=== PATIENT | female | born 2000 | race African-American/Black ===

== ENCOUNTER 2019-12-16 16:26 | Emergency (ER) | payer MEDICAID ==
[~2019-12-16] VITALS: Ht 160 cm; Wt 55.6 kg
--- NOTE | 2019-12-16 16:45 | NUR ---
TAPPER SHANK: PT TO ROOM FROM [facility]
[2019-12-16 17:11] LABS: BASOPHILS % (AUTO) 0 % (0-1); EOSINOPHILS % (AUTO) 1 % (1-7); LYMPHOCYTES % (AUTO) 17 % (22-44); MEAN CORPUSCULAR HEMOGLOBIN 27.8 pg (27.0-34.8); MEAN CORPUSCULAR HGB CONC 33.1 g/dL (32.4-35.8); MEAN PLATELET VOLUME 8.3 fL (7.4-10.4); MONOCYTES % (AUTO) 8 % (2-9); NEUTROPHILS % (AUTO) 73 % (42-75); PLATELET COUNT 309 x10^3/uL (130-400); RED BLOOD COUNT 4.12 x10^6/uL (3.82-5.3); RED CELL DISTRIBUTION WIDTH 13.7 % (9.6-15.2)
[2019-12-16 17:13] LABS: MD NO
[2019-12-16 17:19] LABS: ALBUMIN 3.1 g/dL (3.4-5.0); ANION GAP 6 mmol/L (5-15); CALCIUM 9.7 mg/dL (8.5-10.1); CHLORIDE 104 mmol/L (98-107); CREATININE 0.67 mg/dL (0.55-1.02)
[2019-12-16] MEDS ORDERED: PRENATAL VITAMIN (17:23)
[2019-12-16 17:28] VITALS: BP 120/84
[2019-12-16 17:37] LABS: MICROSCOPIC NOT IND
--- NOTE | 2019-12-16 17:48 | NUR ---
PELVIC CART TO ROOM
--- NOTE | 2019-12-16 18:30 | NUR ---
CALL FROM LAB: [facility] IS POSITIVE. LAB UNABLE TO RUN FERNING TEST & WILL BE CANCELED. WILL UPDATE ERP
[2019-12-16 18:50] LABS: CLUE CELLS NONE SEEN (NONE SEEN); WET PREP WBCS MODERATE (FEW)
[2019-12-17] MEDS ORDERED: PREN1TAB62 PO (20:57)
== END 2019-12-16 20:15 | disposition home or self-care (01) ==
LOC: ED 20:10
DX: O42.90 Premature rupture of membranes, unspecified as to length of time between rupture and onset of labor, unspecified weeks of gestation (principal); O26.892 Other specified pregnancy related conditions, second trimester; Z3A.16 16 weeks gestation of pregnancy
CPT/HCPCS: 36415; 76815; 80048; 81003; 82040; 84112; 85025; 87210; 87808; 99284

== ENCOUNTER 2019-12-17 20:36 | Inpatient (IN) | payer MEDICAID ==
[~2019-12-17] VITALS: Ht 160 cm; Wt 58.3 kg
[~2019-12-17 20:36] MED LIST: PRENATAL VITAMIN
--- NOTE | 2019-12-17 20:45 | NUR ---
pt BIB [facility] from home afer pt found her umbilical cord polapsed afte getting ou of the shower tonight pt was seen here last nocs for leaking of umbilical fluid and aft US had an incidntal finding of twins. pt is pt has not yet had any care but states that she has been taking PNV pt has no vaginal bleeding. denies cramping. pt has no urinary c/o. pt reports that she is feeling movement
--- NOTE | 2019-12-17 20:55 | NUR ---
Dr. Perez at bedside for vaginal exam, witnessed by Sobia CORTEZ and this RN sterile wet gauze was placed to vagina [employer]IST[employer] PROF[employer]OR [employer], has been removed and umbilical cord is visualized sterile wet gauze replaced post exam no vaginal bleeding noted
[2019-12-17] MEDS ORDERED: PREN1TAB62 PO (20:57)
--- NOTE | 2019-12-17 21:10 | NUR ---
Sobia CORTEZ at bedside for recheck. pt to be transfered to L&D
--- NOTE | 2019-12-17 21:14 | NUR ---
pt to have rapid COVID screen prior to transfer to L&D
--- NOTE | 2019-12-17 21:25 | NUR ---
pt has had rapid COVID swab. pt and SO at bedside updated on POC pt tearful. privacy provided
[2019-12-17] MEDS ORDERED: SODIUM CHLORIDE FLUSH 10ML SYR IVF ONE (21:30)
--- NOTE | 2019-12-17 21:35 | NUR ---
pt reports that she has some discomfort in her thighs upon exam, pt has more cord protruding. no bleeding noted. no evidence of tearing
--- NOTE | 2019-12-17 21:54 | NUR ---
CHRISTYN has been to bedside fo evaluation US currently at bedside
[2019-12-17] MEDS ORDERED: CALCIUM CARBONATE 500 MG TAB.CHEW PO PRN (22:30)
[2019-12-17] MEDS ORDERED: MISOPROSTOL 200 MCG TABLET SL SCH (22:30)
[2019-12-17] MEDS ORDERED: OXYTOCIN 30U/ 0.9% NaCL 500ML 500 ML IV ONE (22:30)
[2019-12-17] MEDS ORDERED: SODIUM CITRATE/CITRIC ACID 30 ML UDC PO PRN (22:30)
[2019-12-17] MEDS ORDERED: LACTATED RINGERS 1,000 ML IV SCH (22:30)
[2019-12-17] MEDS ORDERED: FENTANYL PF 100 MCG/2ML IVPush PRN (22:30)
[2019-12-17] MEDS ORDERED: OXYTOCIN 30U/ 0.9% NaCL 500ML 500 ML IV PRN (22:30)
[2019-12-17] MEDS ORDERED: DIPHENHYDRAMINE 50 MG CAPSULE PO PRN (22:30)
[2019-12-17] MEDS ORDERED: METOCLOPRAMIDE 5 MG/ML, 2ML IVPush PRN (22:30)
[2019-12-17] MEDS ORDERED: ACETAMINOPHEN 325 MG TABLET PO PRN ×2 (22:30)
[2019-12-17] MEDS ORDERED: ALUMINUM/MAG/SIMETHICONE 30 ML UDC PO PRN (22:30)
[2019-12-17] MEDS ORDERED: RHOGAM FROM BLOOD BANK 1 NOTE EA IM/IV PRN (22:30)
[2019-12-17 22:56] VITALS: BP 128/78
[2019-12-17 23:10] LABS: BASOPHILS % (AUTO) 0 % (0-1); EOSINOPHILS % (AUTO) 0 % (1-7); LYMPHOCYTES % (AUTO) 6 % (22-44); MEAN CORPUSCULAR HEMOGLOBIN 27.3 pg (27.0-34.8); MEAN CORPUSCULAR HGB CONC 32.8 g/dL (32.4-35.8); MEAN PLATELET VOLUME 8.3 fL (7.4-10.4); MONOCYTES % (AUTO) 1 % (2-9); NEUTROPHILS % (AUTO) 93 % (42-75); PLATELET COUNT 272 x10^3/uL (130-400); RED BLOOD COUNT 4.13 x10^6/uL (3.82-5.3); RED CELL DISTRIBUTION WIDTH 13.8 % (9.6-15.2)
[2019-12-17] MEDS ORDERED: ACETAMINOPHEN 500 MG TABLET ONE (23:24)
[2019-12-17 23:25] LABS: AMPHETAMINE SCREEN, URINE Negative (Negative); BARBITURATE SCREEN, URINE Negative (Negative); BENZODIAZEPINE SCREEN, URINE Negative (Negative); CANNABINOID SCREEN, URINE Positive (Negative); COCAINE SCREEN, URINE Negative (Negative); METHADONE SCREEN, URINE Negative (Negative); OPIATE SCREEN, URINE Negative (Negative)
[2019-12-17] MEDS: ACETAMINOPHEN 500 MG TABLET PO ONE (23:28)
[2019-12-17] MEDS: CEFOXITIN 2 GM in DEXTROSE 5% 100 ML IV SCH (23:29)
[2019-12-17 23:30] LABS: MD NO
[2019-12-17] MEDS ORDERED: ONDANSETRON 2MG/ML, 2ML ONE (23:35)
[2019-12-17] MEDS ORDERED: ACETAMINOPHEN 650 MG SUPP ONE (23:44)
[2019-12-17 23:48] LABS: MICROSCOPIC INDICATED
[2019-12-18] MEDS ORDERED: ONDANSETRON 2MG/ML, 2ML IVPush PRN
[2019-12-18] MEDS ORDERED: ACETAMINOPHEN 100 ML IVPB ONE
[2019-12-18] MEDS ORDERED: ACETAMINOPHEN 650 MG SUPP PR PRN
[2019-12-18] MEDS: DOXYCYCLINE 100 MG in DEXTROSE 5% 250 ML IV SCH ×2 (00:20→12:33)
[2019-12-18 00:21] VITALS: BP 90/42
[2019-12-18] MEDS ORDERED: FENTANYL PF 100 MCG/2ML ONE ×2 (01:31→02:56)
[2019-12-18] MEDS: FENTANYL PF 100 MCG/2ML IVPush PRN ×2 (01:40→04:07)
[2019-12-18] MEDS ORDERED: ACETAMINOPHEN 325 MG TABLET PO PRN ×2 (04:00)
[2019-12-18] MEDS ORDERED: CALCIUM CARBONATE 500 MG TAB.CHEW PO PRN (04:00)
[2019-12-18] MEDS ORDERED: ONDANSETRON 2MG/ML, 2ML IV PRN (04:00)
[2019-12-18] MEDS ORDERED: SIMETHICONE 80 MG CHEW TAB PO PRN (04:00)
[2019-12-18] MEDS ORDERED: MISOPROSTOL 200 MCG TABLET PO PRN (04:00)
[2019-12-18] MEDS ORDERED: ACETAMINOPHEN 500 MG TABLET ONE (04:06)
[2019-12-18] MEDS: ACETAMINOPHEN 500 MG TABLET PO ONE (04:07)
[2019-12-18] MEDS: CEFOXITIN 2 GM in DEXTROSE 5% 100 ML IV SCH ×3 (07:30→23:50)
[2019-12-18] MEDS ORDERED: IBUPROFEN 600 MG TABLET ONE ×2 (10:11→17:04)
[2019-12-18] MEDS: IBUPROFEN 600 MG TABLET PO PRN ×2 (10:13→17:09)
[2019-12-18] MEDS: PIPERACILLIN/TAZO/PMX 3.375GM 50 ML IV SCH ×2 (10:50→22:41)
[2019-12-18] MEDS: LACTATED RINGERS 1,000 ML IV SCH (14:00)
[2019-12-18] MEDS ORDERED: LACTATED RINGERS 1,000 ML IV SCH (14:30)
[2019-12-18] MEDS ORDERED: HYDROcodone/APAP 5/325 TABLET ONE (17:04)
[2019-12-18] MEDS: HYDROcodone/APAP 5/325 TABLET PO PRN (17:09)
[2019-12-18 19:41] VITALS: BP 91/53
[2019-12-19] MEDS: DOXYCYCLINE 100 MG in DEXTROSE 5% 250 ML IV SCH ×3 (00:45→23:56)
[2019-12-19] MEDS: PIPERACILLIN/TAZO/PMX 3.375GM 50 ML IV SCH ×5 (04:48→22:25)
[2019-12-19] MEDS ORDERED: ACETAMINOPHEN 325 MG TABLET ONE ×3 (06:18→17:24)
[2019-12-19 06:37] LABS: MEAN CORPUSCULAR HEMOGLOBIN 27.5 pg (27.0-34.8); MEAN CORPUSCULAR HGB CONC 32.7 g/dL (32.4-35.8); MEAN PLATELET VOLUME 8.4 fL (7.4-10.4); PLATELET COUNT 117 x10^3/uL (130-400); RED BLOOD COUNT 3.26 x10^6/uL (3.82-5.3); RED CELL DISTRIBUTION WIDTH 14.2 % (9.6-15.2)
[2019-12-19] MEDS: LACTATED RINGERS 1,000 ML IV SCH ×4 (07:00→23:05)
[2019-12-19 07:35] LABS: MD YES
[2019-12-19 07:36] LABS: BANDS%(MANUAL) 19 % (0-7); LYMPH#(MANUAL) 0.96 x10^3/uL (1-6.1); LYMPHS% (MANUAL) 3 % (22-44); METAMYELOCYTES# (MANUAL) 0.64 x10^3/uL (0-0); METAMYELOCYTES% (MANUAL) 2 % (0-1); SEG#(MANUAL) 22.47 x10^3/uL (1.8-8); SEGS% (MANUAL) 70 % (42-75)
[2019-12-19 07:37] LABS: <RBC MORPHOLOGY> NORMAL; EOS#(MANUAL) 0.32 x10^3/uL (0.0-0.8); EOS% (MANUAL) 1 % (1-7); MONOS#(MANUAL) 1.61 x10^3/uL (0.3-2.7); MONOS% (MANUAL) 5 % (2-9)
[2019-12-19 07:38] LABS: <PLATELET ESTIMATE> DECREASED; <PLT MORPHOLOGY> NORMAL PLT MORPH
[2019-12-19 08:00] VITALS: BP 102/85
[2019-12-19] MEDS: CEFOXITIN 2 GM in DEXTROSE 5% 100 ML IV SCH ×3 (08:01→23:05)
[2019-12-19] MEDS ORDERED: IBUPROFEN 600 MG TABLET ONE ×3 (11:17→22:26)
[2019-12-19] MEDS: IBUPROFEN 600 MG TABLET PO PRN ×3 (11:18→22:27)
[2019-12-19] MEDS: ACETAMINOPHEN 325 MG TABLET PO PRN ×2 (11:18→17:25)
[2019-12-19] MEDS ORDERED: HYDROcodone/APAP 5/325 TABLET ONE (12:45)
[2019-12-19] MEDS: HYDROcodone/APAP 5/325 TABLET PO PRN (15:01)
[2019-12-19 19:08] VITALS: BP 102/55
[2019-12-20] MEDS: PIPERACILLIN/TAZO/PMX 3.375GM 50 ML IV SCH ×2 (04:26→10:20)
[2019-12-20 06:45] LABS: MEAN CORPUSCULAR HEMOGLOBIN 27.2 pg (27.0-34.8); MEAN CORPUSCULAR HGB CONC 32.4 g/dL (32.4-35.8); MEAN PLATELET VOLUME 9.4 fL (7.4-10.4); PLATELET COUNT 129 x10^3/uL (130-400); RED BLOOD COUNT 3.08 x10^6/uL (3.82-5.3); RED CELL DISTRIBUTION WIDTH 14.1 % (9.6-15.2)
[2019-12-20] MEDS: LACTATED RINGERS 1,000 ML IV SCH ×3 (07:00→23:00)
[2019-12-20] MEDS: CEFOXITIN 2 GM in DEXTROSE 5% 100 ML IV SCH (08:04)
[2019-12-20 08:05] LABS: MD YES
[2019-12-20 08:08] LABS: BANDS%(MANUAL) 1 % (0-7); BASOS% (MANUAL) 1 % (0-1); EOS% (MANUAL) 1 % (1-7); LYMPH#(MANUAL) 3.62 x10^3/uL (1-6.1); LYMPHS% (MANUAL) 12 % (22-44); METAMYELOCYTES% (MANUAL) 1 % (0-1); MONOS#(MANUAL) 1.51 x10^3/uL (0.3-2.7); MONOS% (MANUAL) 5 % (2-9); SEG#(MANUAL) 23.86 x10^3/uL (1.8-8); SEGS% (MANUAL) 79 % (42-75)
[2019-12-20 08:09] LABS: <PLATELET ESTIMATE> DECREASED; <PLT MORPHOLOGY> NORMAL PLT MORPH; POLYCHROMASIA 1+
[2019-12-20] MEDS: metroNIDAZOLE 500 MG TABLET PO SCH ×2 (11:45→19:18)
[2019-12-20] MEDS: CEFTRIAXONE PMX 2GM/50ML 50 ML IVPB SCH (14:33)
[2019-12-20] MEDS ORDERED: IBUPROFEN 600 MG TABLET ONE (14:54)
[2019-12-20] MEDS ORDERED: IBUPROFEN 800 MG TABLET ONE (14:54)
[2019-12-20] MEDS ORDERED: HYDROcodone/APAP 5/325 TABLET ONE (14:54)
[2019-12-20] MEDS: HYDROcodone/APAP 5/325 TABLET PO PRN (14:55)
[2019-12-20] MEDS: IBUPROFEN 600 MG TABLET PO PRN (18:00)
[2019-12-20] MEDS ORDERED: FERROUS SULFATE 325 MG TABLET ONE (19:09)
[2019-12-20 19:15] VITALS: BP 110/73
[2019-12-20] MEDS: FERROUS SULFATE 325 MG TABLET PO SCH (19:18)
[2019-12-21] MEDS: metroNIDAZOLE 500 MG TABLET PO SCH ×3 (03:29→19:32)
[2019-12-21] MEDS ORDERED: IBUPROFEN 600 MG TABLET ONE ×2 (06:32→12:07)
[2019-12-21] MEDS ORDERED: ACETAMINOPHEN 325 MG TABLET ONE (06:32)
[2019-12-21] MEDS: IBUPROFEN 600 MG TABLET PO PRN ×2 (06:33→12:28)
[2019-12-21] MEDS: ACETAMINOPHEN 325 MG TABLET PO PRN (06:33)
[2019-12-21 07:09] LABS: MEAN CORPUSCULAR HEMOGLOBIN 27.1 pg (27.0-34.8); MEAN CORPUSCULAR HGB CONC 32.1 g/dL (32.4-35.8); MEAN PLATELET VOLUME 9.4 fL (7.4-10.4); PLATELET COUNT 177 x10^3/uL (130-400); RED BLOOD COUNT 3.16 x10^6/uL (3.82-5.3)
[2019-12-21 08:01] LABS: MD YES
[2019-12-21 08:02] LABS: ANISOCYTOSIS 1+; BAND#(MANUAL) 2.54 x10^3/uL; BANDS%(MANUAL) 8 % (0-7); EOS#(MANUAL) 0.32 x10^3/uL (0.0-0.8); EOS% (MANUAL) 1 % (1-7); LYMPH#(MANUAL) 3.17 x10^3/uL (1-6.1); LYMPHS% (MANUAL) 10 % (22-44); MONOS#(MANUAL) 0.63 x10^3/uL (0.3-2.7); MONOS% (MANUAL) 2 % (2-9); SEG#(MANUAL) 25.04 x10^3/uL (1.8-8); SEGS% (MANUAL) 79 % (42-75)
[2019-12-21 08:03] LABS: <PLATELET ESTIMATE> DECREASED; <PLT MORPHOLOGY> NORMAL PLT MORPH; POLYCHROMASIA 1+; TEAR DROPS 1+
[2019-12-21 10:00] VITALS: BP 110/65
[2019-12-21] MEDS ORDERED: FERROUS SULFATE 325 MG TABLET ONE ×2 (11:07→18:09)
[2019-12-21] MEDS: FERROUS SULFATE 325 MG TABLET PO SCH ×2 (11:41→18:10)
[2019-12-21] MEDS: CEFTRIAXONE PMX 2GM/50ML 50 ML IVPB SCH (12:01)
[2019-12-21 13:05] VITALS: BP 112/70
[2019-12-21 17:28] VITALS: BP 125/82
[2019-12-21 19:35] VITALS: BP 128/82
[2019-12-21 23:27] VITALS: BP 112/74
[2019-12-22] MEDS: metroNIDAZOLE 500 MG TABLET PO SCH (03:34)
[2019-12-22] MEDS ORDERED: IBUPROFEN 600 MG TABLET ONE (03:35)
[2019-12-22] MEDS: IBUPROFEN 600 MG TABLET PO PRN (03:35)
[2019-12-22 05:27] VITALS: BP 118/68
[2019-12-22 06:00] LABS: MEAN CORPUSCULAR HEMOGLOBIN 27.2 pg (27.0-34.8); MEAN CORPUSCULAR HGB CONC 32.3 g/dL (32.4-35.8); MEAN PLATELET VOLUME 8.3 fL (7.4-10.4); PLATELET COUNT 198 x10^3/uL (130-400); RED CELL DISTRIBUTION WIDTH 14.2 % (9.6-15.2)
[2019-12-22 07:53] LABS: MD YES
[2019-12-22 07:55] LABS: EOS#(MANUAL) 0.19 x10^3/uL (0.0-0.8); EOS% (MANUAL) 1 % (1-7); LYMPH#(MANUAL) 4.18 x10^3/uL (1-6.1); LYMPHS% (MANUAL) 22 % (22-44); MONOS#(MANUAL) 1.14 x10^3/uL (0.3-2.7); MONOS% (MANUAL) 6 % (2-9); SEG#(MANUAL) 13.49 x10^3/uL (1.8-8); SEGS% (MANUAL) 71 % (42-75)
[2019-12-22 07:56] LABS: <PLATELET ESTIMATE> ADEQUATE; <PLT MORPHOLOGY> NORMAL PLT MORPH; ANISOCYTOSIS 1+
[2019-12-22] MEDS ORDERED: FERROUS SULFATE 325 MG TABLET ONE (08:36)
[2019-12-22] MEDS: FERROUS SULFATE 325 MG TABLET PO SCH (08:37)
== END 2019-12-22 10:14 | disposition home or self-care (01) | DRG 779 ==
LOC: ED 20:50 → EDIP 21:11 → LDIP 22:22
PROVIDERS: ADMIT Obstetrics & Gynecology; ATTEND Obstetrics & Gynecology
PROC: 10E0XZZ Delivery of Products of Conception, External Approach (ICD-10-PCS; principal; 2019-12-17)
DX: O02.1 Missed abortion (principal); O41.1220 Chorioamnionitis, second trimester, not applicable or unspecified; A41.51 Sepsis due to Escherichia coli [E. coli]; O03.38 Urinary tract infection following incomplete spontaneous abortion; O99.324 Drug use complicating childbirth; O03.37 Sepsis following incomplete spontaneous abortion; O30.002 Twin pregnancy, unspecified number of placenta and unspecified number of amniotic sacs, second trimester; O42.912 Preterm premature rupture of membranes, unspecified as to length of time between rupture and onset of labor, second trimester; O69.0XX0 Labor and delivery complicated by prolapse of cord, not applicable or unspecified; O99.02 Anemia complicating childbirth; Z3A.17 17 weeks gestation of pregnancy; Z20.828 Contact with and (suspected) exposure to other viral communicable diseases; F12.10 Cannabis abuse, uncomplicated; D64.9 Anemia, unspecified
CPT/HCPCS: 36415; 76816; 80307; 81001; 83605; 85025; 86850; 86900; 87040; 87077; 87086; 87186; 87635; 88307; 96374; 99285; G0378; J0696; J2405; J2543; J3010; J7060; J0694; J2590; J7120

== ENCOUNTER 2020-08-09 16:56 | Emergency (ER) | payer MEDICAID ==
[~2020-08-09] VITALS: Ht 160 cm; Wt 55.0 kg
[~2020-08-09 16:56] MED LIST changes: +PREN1TAB62 PO
[2020-08-09 17:07] VITALS: BP 122/72
--- NOTE | 2020-08-09 17:50 | NUR ---
CHECKED IN WITH PT, NOTIFYING WILL ROOM SOON POSSIBLE. [employer] INST[employer]ER NOTIFIED OF PT FEVER AND COMPLAINT.
== END 2020-08-09 19:01 ==
LOC: ED 17:30
DX: M54.5 Low back pain (principal); Z53.21 Procedure and treatment not carried out due to patient leaving prior to being seen by health care provider
CPT/HCPCS: 99281

== ENCOUNTER 2020-08-13 14:19 | Emergency (ER) | payer MEDICAID ==
--- NOTE | 2020-08-13 14:53 | NUR ---
called for pt. pt not in lobby
--- NOTE | 2020-08-13 15:04 | NUR ---
NO ANSWER FROM [facility]
--- NOTE | 2020-08-13 15:14 | NUR ---
NO ANSWER FROM [facility]
== END 2020-08-13 16:39 | disposition left against medical advice (07) ==
LOC: ED 16:00
DX: R10.9 Unspecified abdominal pain (principal); Z53.21 Procedure and treatment not carried out due to patient leaving prior to being seen by health care provider